=== PATIENT | female | born 2000 | race Caucasian/White ===

== ENCOUNTER → 2019-02-27 | Outpatient (CLI) | payer BC | LOC: COL.VAS 12:45 | DX: I69.30 Unspecified sequelae of cerebral infarction (principal) ==

== ENCOUNTER → 2020-02-24 | Outpatient (CLI) | payer BC | LOC: COL.RAD 02-20 13:30 | DX: I65.1 Occlusion and stenosis of basilar artery (principal); I66.23 Occlusion and stenosis of bilateral posterior cerebral arteries | CPT/HCPCS: Q9967 ==

== ENCOUNTER 2020-10-30 22:55 | Emergency (ER) | payer BC ==
[~2020-10-30] VITALS: Ht 170.2 cm; Wt 84.1 kg
[2020-10-30 23:02] VITALS: TEMP 98.9
[2020-10-30 23:35] LABS: BASO % 0.6 % (0.0-2.0); EOS # 0.2 (0.0-0.7); EOS % 2.5 % (0-4.0); GRAN # 3.5 (1.4-6.5); GRAN % 54.4 % (42.2-75.2); HEMATOCRIT 41.8 % (35.0-45.0); HEMOGLOBIN 13.8 g/dl (12.0-15.0); LYMPH # 2.1 (1.2-3.4); LYMPH % 33.1 % (20.0-51.0); MEAN CELL VOLUME 92 fl (80.0-95.0); MEAN CORPUSCULAR HEMOGLOBIN 30 pg (26.0-32.0); MEAN CORPUSCULAR HGB CONC 33 g/dl (33.0-37.0); MEAN PLATELET VOLUME 10.7 fl (7.4-10.4); MONO # 0.6 (0.1-0.6); MONO % 9.2 % (1.7-9.3); PLATELET COUNT 291 K/mm3 (130-400); RED BLOOD COUNT 4.56 M/mm3 (4.10-5.30); REDCELL DISTRIBUTION WIDTH-CV 12.5 % (11.5-14.5)
[2020-10-30 23:44] LABS: BILIRUBIN,TOTAL 0.3 mg/dL (0.0-1.0); CALCIUM 9.4 mg/dL (8.4-10.2); CREATININE, serum 0.54 (0.52-1.25); POTASSIUM 3.8 mmol/L (3.4-5.0); TOTAL PROTEIN 8.9 gm/dL (6.4-8.2)
[2020-10-31 04:10] VITALS: BP 124/68; PULSE 86
== END 2020-10-31 04:12 | disposition left against medical advice (07) ==
LOC: COL.ER 22:55
PROVIDERS: Emergency Medicine
DX: R51.9 Headache, unspecified (principal); Z86.73 Personal history of transient ischemic attack (TIA), and cerebral infarction without residual deficits; Z79.82 Long term (current) use of aspirin
CPT/HCPCS: J1885; J2765; J7120; Q9967